=== PATIENT | male | born 1945 | race Caucasian/White ===

== ENCOUNTER 2021-09-12 09:16 | Inpatient (IN) | payer OTHER ==
[~2021-09-12] VITALS: Ht 167.6 cm; Wt 65.8 kg
--- NOTE | ~2021-09-12 | EMS ---
[address] [address] EMS Patient Care Report Name: TIMOTEO WAGGONER Room #: 170-16 ADM IN M.R.#: [id number] Admission: 09/12/21 Attend Phys: Aurora Travis Discharge: Date of : 49 Report #: [id number] THIS REPORT FOR: //name// Report Transmitted: 09/12/2021 22:29 EMS Care Summary [facility] Incident [id number] @ 09/12/2021 08:38 Incident Location [address] [place] [id number] Patient TIMOTEO WAGGONER Male, 76 Years 1945 Patient Address [address] [place] [address] Patient History Hyperlipidemia, Patient Allergies No known allergies, Patient Medications Simvastatin, Chief Complaint Patient almost passed out. Disposition Transported No Lights/[place] Reason Unconscious/Fainting Transported To [facility] Narrative Arrived to find a 76 yr old male patient finishing up using the bathroom in no obvious acute distress. Patient's was in the bathroom with the patient and she states the patient almost passed out. She reports he had an episode back in July when he passed out and fell. Patient was transported in [facility] [address] [place] [address] EMS Patient Care Report Name: TIMOTEO WAGGONER Room #: 170-16 ADM IN M.R.#: [id number] Admission: 09/12/21 Attend Phys: Gonsaloailyn Star Mirian Discharge: Date of : 49 Report #: [id number] [place] and was found to be dehydrated. According to the patient and family he has been dealing with a "head cold" over the past week. Patient has been congested, coughing, and runny nose. They deny the patient running a fever, having a headache, loss of taste or smell, nausea/vomiting/diarrhea. Patient has an "echo" scheduled. Patient did not fall today. A: See assessment tab. Patient was moved from the bathroom to a chair so he could be evaluated. Physical exam. Vital signs. ECG. Orthostatic BP. Patient was able to walk out to the cot with assistance. Moved to unit. 12- lead ECG. En route to [facility]. Vital signs and ECG were monitored during transport. IV established and patient was administered about 300 mls of NS IV. We contacted [facility] on the [employer] radio. Patient stated he felt pretty good during transport and his blood pressure remained stable during transport. Patient was alert with stable vital signs upon arrival at [facility]. Patient care was transferred to an ED RN in room 11 at [facility]. The cot sheet was utilized to transfer the patient. Patient was transported to the closet facility. Initial Vitals @08:52P: 82,R: 16,BP: 82/55,GCS: 15,SpO2: 94,Revised Trauma: 11, @08:53P: 81,R: 16,Pain: 0/10,GCS: 15,NH Suspected: false @09:09P: 85,R: 16,BP: 114/70,GCS: 15,Revised Trauma: 12,NH Suspected: false @09:03P: 82,R: 16,BP: 106/70,Pain: 0/10,GCS: 15,Revised Trauma: 12,NH Suspected: false @08:50P: 82,R: 16,BP: 61/39,Pain: 0/10,GCS: 15,Glucose: 113,SpO2: 93,Revised Trauma: 10,NH Suspected: false @08:47P: 80,R: 16,BP: 87/55,Pain: 0/10,GCS: 15,Temp: 95.7F,SpO2: 93,Revised Trauma: 11, Impression Orthostatic Hypotension Procedures @08:53 12-Lead ECG Response: UnchangedSucceeded @08:57 IV Therapy - Normal Saline (.9% NaCl) 200cc (18 ga) Site: Antecubital-Right Response: UnchangedSucceeded @08:50 Surgical Mask on Patient Response: Unchanged Timeline [address] [address] EMS Patient Care Report Name: TIMOTEO WAGGONER Room #: 17016 ADM IN M.R.#: [id number] Admission: 09/12/21 Attend Phys: Aurora Travis Discharge: Date of : 49 Report #: [id number] 08:36,Call Received 08:36,Psap Call 08:38,Dispatched 08:38,En Route 08:42,On Scene 08:44,At Patient 08:47,BP: 87/55 M,PULSE: 80,RR: 16 R,SPO2: 93 Ox,ETCO2: ,BG: ,PAIN: 0,GCS: 15, 08:50,Surgical Mask on Patient,Response: Unchanged 08:50,BP: 61/39 M,PULSE: 82,RR: 16 R,SPO2: 93 Ox,ETCO2: ,B,PAIN: 0,GCS: 15, 08:52,BP: 82/55 M,PULSE: 82,RR: 16 R,SPO2: 94 Ox,ETCO2: ,BG: ,PAIN: ,GCS: 15, 08:53,12-Lead ECG,Response: UnchangedSucceeded, 08:53,BP: / M,PULSE: 81,RR: 16 R,SPO2: Ox,ETCO2: ,BG: ,PAIN: 0,GCS: 15, 08:57,IV Therapy - Normal Saline (.9% NaCl) 200cc 18 ga Site: Antecubital-Right,Response: UnchangedSucceeded, 09:03,BP: 106/70 M,PULSE: 82,RR: 16 R,SPO2: Ox,ETCO2: ,BG: ,PAIN: 0,GCS: 15, 09:04,Depart Scene 09:09,BP: 114/70 M,PULSE: 85,RR: 16 R,SPO2: Ox,ETCO2: ,BG: ,PAIN: ,GCS: 15, 09:11,At Destination 09:32,Call Closed Disclaimer v1.1 Copyright 2021 [employer] This EMS Care Summary contains data elements from the applicable legal record (which may be displayed differently). It is designed to provide pertinent information for the following purposes: continuity of care, clinical quality, and state data reporting. The complete legal record is available to ED staff and administrators of the receiving hospital in [employer]'s Patient Tracker. All data is provided "as is."
[2021-09-12 09:17] VITALS: BP 110/40
[2021-09-12] MEDS ORDERED: SIMVASTATIN80 MG PO (09:25)
[2021-09-12 10:19] LABS: ABSOLUTE NEUTROPHILS 5.5 thou/uL (1.4-8.2); BASOPHILS 0.6 % (0.0-2.0); EOSINOPHILS 2.2 % (0.0-3.0); HEMATOCRIT 41.6 % (42.0-52.0); LYMPHOCYTES 5.8 % (24.0-44.0); MCHC 33.7 g/dL (28.0-37.0); MCV 94.9 fL (80.0-100.0); MONOCYTES 10.1 % (1.0-8.0); PLATELET COUNT 226 thou/uL (150-400); POLYS 81.3 % (36.0-66.0); RBC 4.38 mil/uL (4.50-6.00); RDW 12.9 % (10.5-14.5); WBC 6.8 thou/uL (4.0-11.0)
[2021-09-12 11:02] LABS: CALCIUM 8.7 mg/dL (8.5-10.1); CREATININE 1.3 mg/dL (0.7-1.3); POTASSIUM 4.1 mmol/L (3.5-5.1)
[2021-09-12 11:08] LABS: ALBUMIN 3.4 g/dL (3.4-5.0); TOTAL BILIRUBIN 0.6 mg/dL (0.2-1.0); TOTAL PROTEIN 7.2 g/dL (6.4-8.2)
[2021-09-12 13:52] LABS: URINE BILIRUBIN NEGATIVE (Negative); URINE BLOOD NEGATIVE (Negative); URINE CLARITY CLEAR; URINE COLOR YELLOW; URINE GLUCOSE-RANDOM* NEGATIVE (Negative); URINE KETONES 1+ (Negative); URINE LEUKOCYTES-REFLEX NEGATIVE (Negative); URINE NITRITE-REFLEX NEGATIVE (Negative); URINE PROTEIN (DIPSTICK) NEGATIVE (Negative); URINE SPECIFIC GRAVITY 1.025 (1.005-1.035); URINE UROBILINOGEN 0.2 E.U./dl (0.2-1.0)
[2021-09-12 16:00] VITALS: BP 130/60
[2021-09-12 20:00] VITALS: BP 106/47
[2021-09-13] VITALS: BP 120/52
[2021-09-13 04:00] VITALS: BP 132/52
[2021-09-13 08:46] VITALS: BP 137/73
--- NOTE | 2021-09-13 10:52 | 2DMMODE ---
[facility] [place] [place] [address] 2 D/M-MODE ECHOCARDIOGRAM Name: TIMOTEO WAGGONER Room #: 170-16 ADM IN M.R.#: [id number] Admission: 09/12/21 Attend Phys: Aurora Travis Discharge: Date of : 49 Report #: [id number] THIS REPORT FOR: cc: GREG WHITAKER,Figueroa Palomo MD ~ APPROVED REPORT Study performed: 09/12/2021 13:03:02 EXAM: Comprehensive 2D, Doppler, and color-flow Echocardiogram Patient Location: ER Room #: 11 Status: routine BSA: 1.74 HR: 93 bpm BP: 120/73 mmHg Rhythm: NSR Other Information Study Quality: Good Indications Syncope Echo Enhancing Agent Indication: Rule out Shunt Agent(s) / Amount(s) Used: Agitated Saline 7 cc 2D Dimensions IVSd: 8.99 (7-11mm) LVOT Diam: 19.32 (18-24mm) LVDd: 43.30 mm PWd: 9.22 (7-11mm) LVDs: 31.32 (25-40mm) Left Atrium: 31.34 (27-40mm) Aortic Root: 33.92 mm IVC: 13.00 mm Aortic Valve AoV Peak Robert.: 1.28 m/s AO Peak Gr.: 6.57 mmHg LVOT Max P.64 mmHg LVOT Max V: 1.08 m/s BRANDON Vmax: 2.46 cm2 Mitral Valve [facility] [address] [place] [address] 2 D/M-MODE ECHOCARDIOGRAM Name: TIMOTEO WAGGONER Room #: 170-16 ADM IN M.R.#: [id number] Admission: 09/12/21 Attend Phys: Aurora Abarca Discharge: Date of : 49 Report #: [id number] E/A Ratio: 0.6 MV Decel. Time: 292.64 ms MV E Max Robert.: 0.44 m/s MV A Robert.: 0.72 m/s MV PHT: 84.87 ms IVRT: 152.25 ms Pulmonary Valve PV Peak Robert.: 0.90 m/s PV Peak Gr.: 3.22 mmHg Pulmonary Vein P Vein S: 0.43 m/s P Vein A: 0.30 m/s P Vein D: 0.22 m/s P Vein A Dur.: 124.6 msec P Vein S/D Ratio: 1.95 Left Ventricle The left ventricle is normal size. There is normal LV segmental wall motion. There is normal left ventricular wall thickness. Left ventricular systolic function is normal. The left ventricular ejection fraction is within the normal range. LVEF is 60-65%. Grade I - abnormal relaxation pattern. Right Ventricle The right ventricle is normal size. The right ventricular systolic function is normal. Atria The left atrium size is normal. Injection of contrast documented no interatrial shunt. The right atrium size is normal. Aortic Valve The aortic valve is normal in structure. No aortic regurgitation is present. There is no aortic valvular stenosis. Mitral Valve The mitral valve is normal in structure. There is no mitral valve regurgitation noted. No evidence of mitral valve stenosis. Tricuspid Valve The tricuspid valve is normal in structure. There is no tricuspid valve regurgitation noted. Pulmonic Valve The pulmonary valve is normal in structure. There is no pulmonic valvular regurgitation. [facility] [address] [place] [address] 2 D/M-MODE ECHOCARDIOGRAM Name: TIMOTEO WAGGONER Room #: 170-16 ADM IN M.R.#: [id number] Admission: 09/12/21 Attend Phys: Aurora Abarca Discharge: Date of : 49 Report #: [id number] Great Vessels The aortic root is normal in size. IVC is normal in size and collapses >50% with inspiration. Pericardium There is no pericardial effusion. <Conclusion> The left ventricle is normal size. LVEF is 60-65%. The left atrium size is normal. The aortic valve is normal in structure. The mitral valve is normal in structure. The tricuspid valve is normal in structure. The pulmonary valve is normal in structure. The aortic root is normal in size. There is no pericardial effusion. Injection of contrast documented no interatrial shunt. <ELECTRONICALLY SIGNED> By: Figueroa Mejia MD 09/13/21 1052 51 51 Figueroa Mejia MD /INF
[2021-09-13 20:55] VITALS: BP 130/80
--- NOTE | 2021-09-14 05:37 | NUR ---
PT SLEPT MOST OF THE NIGHT. NO NEW COMPLAINTS NOTED.
--- NOTE | 2021-09-14 07:37 | EKG ---
[place] [address] [facility] [place] [address] ELECTROCARDIOGRAM REPORT Name: TIMOTEO WAGGONER Room #: 170-16 ADM IN M.R.#: [id number] Admission: 09/12/21 Attend Phys: Aurora Travis Discharge: Date of : 49 Report #: [id number] [facility] ED Test Date: 2021-09-12 Test Time: 09:34:54 Pat Name: TIMOTEO WAGGONER Department: Room: 170 Gender: M [employer] Legal Secretary: : 1945 Requested By: Corinna Campbell Order Number: [id number] MD: Oswaldo Conrad Measurements Intervals [place] Rate: 88 P: 45 IL: 151 QRS: 39 QRSD: 81 T: 33 QT: 347 QTc: 420 Interpretive Statements Sinus rhythm Baseline wander in lead(s) V3 No previous ECG available for comparison Electronically Signed On 09-14-2021 7:37:20 CHEMICAL OPERATIONS SPECIALIST by Oswaldo Conrad [email or web address] <ELECTRONICALLY SIGNED> By: Oswaldo Conrad MD, [facility] 09/14/21 0737 0934 3 Oswaldo Conrad MD, FACC /EPI
[2021-09-14 08:00] VITALS: BP 109/62
[2021-09-14 12:00] VITALS: BP 134/90
--- NOTE | 2021-09-14 12:49 | NUR ---
1230: PT LEFT UNIT VIA WHEELCHAIR FOR NUCLEAR MEDICINE AT THIS TIME. PT'S SON AT BEDSIDE AND WENT TO PROCEDURE WITH PT.
--- NOTE | 2021-09-14 14:47 | NUR ---
1440: PT RETURNED TO ROOM, FAMILY AT BEDSIDE. PT EATING LUNCH.
[2021-09-14 16:00] VITALS: BP 108/69
--- NOTE | 2021-09-14 16:36 | NUR ---
1635: DR. MONTGOMERY AT BEDSIDE, OKAY TO DC FROM HIS PERSPECTIVE.
[2021-09-14 16:51] VITALS: BP 108/69
--- NOTE | 2021-09-14 17:07 | NUR ---
1705: PT DISCHAGED HOME TO SELF CARE AT THIS TIME ACCOMPANIED BY HIS SPOUSE AND SON. PT AMBULATED OUT. PT PROVIDED WITH DISCHARGE INSTRUCTIONS PRIOR TO DC. AND REPORTS UNDERSTANDING/DENIES CONCERNS.
== END 2021-09-14 17:06 | disposition home or self-care (01) | DRG 316 ==
LOC: ER 09:16 → EROBS 14:03
PROVIDERS: Emergency Medicine; ADMIT Hospitalist; ATTEND Hospitalist
DX: I95.9 Hypotension, unspecified (principal); E78.5 Hyperlipidemia, unspecified; I73.00 Raynaud's syndrome without gangrene; Z20.822 Contact with and (suspected) exposure to COVID-19; Z82.49 Family history of ischemic heart disease and other diseases of the circulatory system